=== PATIENT | male | born 1965 | race Caucasian/White ===

== ENCOUNTER 2023-05-29 07:54 | Outpatient (OUT) | payer OTHER, MEDICARE, SELFPAY ==
--- NOTE | 2023-05-29 07:59 | XR_ITS ---
The [address] [address] Patient Name: MIKIE COOK MRN: [id number] date: 1965 Sex: M Assigned Patient Location: [facility] Current Patient Location: RAD Accession/Order Number: [id number] Exam Date: 05/29/2023 08:00 Report Date: 05/29/2023 08:23 At the request of: MUNIR MACIEL Procedure: XR chest 2V EXAM: Chest x-ray HISTORY: . Centrilobular Emphysema J43.2 . COMPARISON: 10/03/2022 TECHNIQUE: Frontal and lateral chest FINDINGS: Heart and vascularity are unremarkable. There is hyperexpansion of lungs and flattening in hemidiaphragms indicating COPD. Early atherosclerotic changes of the thoracic aorta are noted. Calcified granuloma are noted in the right hilum. There is a 9 mm nodule in the right upper lobe which is unchanged from the previous exam. Early spondylosis of the spine is noted. XR/XR chest 2V IMPRESSION: 1. Changes consistent with COPD. 2. No focal infiltrates. 3. No change from the previous exam. Electronically authenticated by: ALEXANDREA DOUGHERTY Date: 05/29/2023 08:23
[2023-05-29 08:18] LABS: Hemoglobin 13.7 g/dL (14.0-18.0)
--- NOTE | 2023-05-29 09:41 | RT_ITS ---
The [facility] Test Date: 2023-05-29 Pat Name: Yovany Foy Department: Room: - Gender: Male Research Electrician: Emma Leslie RRT : 1965 Requested By: Nav Zafar Order Number: [id number] Reading MD: Nav Zafar Interpretive Statements Pulmonary function testing was completed according to ATS criteria. Findings were considered accurate and reproducible, with exception of DLCO which did not meet ATS standards. Both pre- and post-bronchodilator values utilized for spirometry. Due to software limitations, no prior studies (if performed previously) are currently available for comparison. Spirometry (based on pre-bronchodilator values): -FEV1/FVC: Reduced @ 51% -FEV1: Moderately-severe reduction @ 51% -FVC: Reduced @ 77% -There is a positive bronchodilator response in FEV1. Lung volumes by plethysmography: -RV: Increased @ 130% -TLC: Normal @ 94% Diffusion capacity: -DLCO: Severe reduction @ 46% when corrected for Hb 13.7g/dL Impressions: -Spirometry suggests moderately-severe obstruction with a positive bronchodilator response. An elevated RV suggests air trapping. There is a severely reduced diffusion capacity. Overall study suggests asthma-COPD overlap or COPD with a positive bronchodilator response. Clinical correlation required. Electronically Signed On 05-29-2023 12:53:33 EDT by Nav Zafar
[2023-05-29 10:04] VITALS: PULSE 88; O2SAT 97
[2023-05-29] MEDS: ALBUTEROL SULFATE 2.5 MG/3 ML VIAL NEB IH (10:04)
== END 2023-05-29 07:55 | disposition home or self-care (01) ==
LOC: RAD 07:54
PROVIDERS: Visit Provider Internal Medicine
DX: J43.2 Centrilobular emphysema (principal); J44.9 Chronic obstructive pulmonary disease, unspecified
CPT/HCPCS: 36415; 71046; 85018; 94060; 94726; 94729